=== PATIENT | female | born 2000 | race Caucasian/White ===

== ENCOUNTER 2025-09-30 22:37 | Outpatient (CLI) | payer OTHER, SELFPAY ==
[2025-09-30 22:53] VITALS: TEMP 36.7
[2025-09-30 23:00] VITALS: BP 120/77; PULSE 89
[2025-09-30 23:16] VITALS: BP 123/80; PULSE 93
[2025-09-30 23:22] LABS: Hematocrit* 35.6 % (33.0-51.0); Hemoglobin* 12.1 gm/dL (12.0-16.0); Mean Corpuscular HGB Conc 34 gm/dL (32-36); Mean Corpuscular Hemoglobin 31 pg (26-34); Mean Corpuscular Volume 91 fL (80-100); Red Blood Count* 3.90 m/uL (4.00-5.20); White Blood Count* 12.16 K/uL (4.50-11.00)
[2025-09-30 23:30] VITALS: BP 118/76; PULSE 91
[2025-09-30 23:32] LABS: Slide Review Reflex No
[2025-09-30 23:37] LABS: Alanine Aminotransferase* 16 U/L (4-35); Aspartate Amino Transferase* 25 U/L (12-35); Blood Urea Nitrogen* 11 mg/dL (5-24); Creatinine* 0.5 mg/dL (0.5-1.5); Estimated Glomerular Filt Rate 133 ml/min
[2025-09-30 23:45] VITALS: BP 117/66; PULSE 90
[2025-09-30 23:49] LABS: Protein Creatinine Ratio Urine 0.42 (0-0.19)
[2025-10-01] VITALS: BP 114/70; PULSE 90
--- NOTE | 2025-10-01 00:26 | PC.OBNST ---
NST Note NST Note Start: 09/30/25 22:41 Freq: ONCE Status: Active Protocol: Document 10/01/25 00:24 MRN (Rec: 10/01/25 00:25 MRN [id number]) NST Note 1 Para (# of births) 0 EDC 11/18/25 Gestational Age In 33 Weeks & 1 Days Weeks & Days Patient Presented Other with Complaint(s) of Other Complaints Rule out Pre E Reactive Yes Appropriate for Yes Gestational Age FERN Lauren Rn Date 10/01/25 Reactive Yes Appropriate for Yes Gestational Age FERN Castillo RN Date 10/01/25 OB NST charge Yes Complete NST Note Yes via Write Note The provider's electronic signature indicates the NST is reactive/appropriate for gestational age. *Note to provider: If an addendum is required, open the patient's chart and click on the note under the Nurse/Allied Health tab.
[2025-10-02 16:30] LABS: Urine Creatinine mg/24 Hour 0 mg/Day
[2025-10-02 16:48] LABS: Protein Creatinine Ratio Urine 0.36 (0-0.19)
[2025-10-02 16:54] LABS: Total Volume 24 Hour Urine 2200 ml
== END 2025-10-01 00:26 | disposition home or self-care (01) ==
LOC: OB OUT 22:38 → OB 22:39
PROVIDERS: Visit Provider Family Medicine
DX: O26.893 Other specified pregnancy related conditions, third trimester (principal); R03.0 Elevated blood-pressure reading, without diagnosis of hypertension; Z3A.33 33 weeks gestation of pregnancy
CPT/HCPCS: 36415; 59025; 81003; 82565; 82570; 84156; 84450; 84460; 84520; 85027; G0463

== ENCOUNTER 2025-10-11 17:13 | Outpatient (CLI) | payer OTHER, SELFPAY ==
[2025-10-11] VITALS (7 sets, daily range): BP systolic 124–138; BP diastolic 67–87; PULSE 87–105; RESP 16–18; TEMP 36.7–36.8; O2SAT 90–99
[2025-10-11 17:50] LABS: Appearance Urine Clear (Clear)
--- NOTE | 2025-10-11 18:13 | CRLHL7_ITS ---
For Patients: As a result of the Century Cures Act, medical imaging exams and procedure reports are released immediately into your electronic medical record. You may view this report before your referring provider. If you have questions, please contact your health care provider. INDICATION: Flank and hip pain TECHNIQUE: Ultrasound renal and bladder complete. Cook-scale and color Doppler sonographic images were acquired of the kidneys and urinary bladder. COMPARISON: None. FINDINGS: Right kidney: Size: 13.5 x 5.7 x 6.6 cm. Morphology: Normal echotexture and cortex. Masses: No suspicious mass. Stones: No. Hydronephrosis: Mild. Left kidney: Size: 12.2 x 5.2 x 5 cm. Morphology: Normal echotexture and cortex. Masses: No suspicious mass. Stones: Query a nonobstructive nephrolith measuring 0.6 x 0.2 x 0.5 cm. Hydronephrosis: No. Bladder: Morphology: Normal in caliber and appearance. Ureteral jets: Left ureteral jet was visualized. Right ureteral jet was not seen. Prevoid volume was 362 mL. Postvoid residual volume could not be obtained due to head down. IMPRESSION: Limited exam as patient is 34 weeks . 1. Mild right-sided hydronephrosis which persists postvoid. Right ureteral jet was not definitively visualized. Correlate for tenderness. 2. No left-sided hydronephrosis. Query a nonobstructive left-sided nephrolith measuring 0.6 x 0.2 x 0.5 cm. Dictated by Bryan Russell MD @ 10/11/2025 7:55:43 PM (Electronically Signed)
[2025-10-11] MEDS: LACTATED RINGERS 1000 ML 1,000 ML IV (18:30)
[2025-10-11 18:39] LABS: Hematocrit* 35.8 % (33.0-51.0); Hemoglobin* 12.5 gm/dL (12.0-16.0); Immature Granulocytes Pct Auto 2.6 %; Mean Corpuscular HGB Conc 35 gm/dL (32-36); Mean Corpuscular Hemoglobin 31 pg (26-34); Mean Corpuscular Volume 88 fL (80-100); RDW Coefficient of Variation % 13.4 % (11.5-15.5); Red Blood Count* 4.07 m/uL (4.00-5.20); White Blood Count* 13.73 K/uL (4.50-11.00)
[2025-10-11] MEDS: ONDANSETRON 2 MG/ML inj 4 MG IVP (18:39)
[2025-10-11 18:50] LABS: Immature Granulocytes Abs Auto 0.40 K/uL (0.00-0.30); Lymphocytes Absolute Auto 1.30 K/uL (0.90-2.90); Slide Review Reflex No
--- NOTE | 2025-10-11 19:05 | P.OBLDTN_ITS ---
OB - Triage/Final Diagnosis Visit Information Time Seen by Provider: 19:05 Date Seen: 10/11/25 Narrative: The patient is a 25 year old 1 para 0 at 34 weeks gestation, who presents with right flank pain. She endorses right flank pain starting this morning. Recalls a similar episode 5 days ago, associated with pink-tinged urine, for which she called the clinic. She was instructed to present to L&D for further evaluation, but pain resolved spontaneously. Recurred this morning, and has worsened throughout the day. She describes severe pain in her right flank radiating toward the right groin. Endorses mild nausea, no vomiting. Of note, she has a history of nephrolithiasis. Last episode of renal colic was in 2011. Per chart review, a CT of the abdomen and pelvis showed nonobstructive nephrolithiasis bilaterally in 2021. Her stools have been hard, constipated throughout her . No diarrhea. Denies dysuria or further episodes of hematuria. No fever, chills or body aches. She has had Dion Govea, but otherwise no contractions. Normal movement. Evaluation Laboratory results: Laboratory Tests 10/11/25 10/11/25 Range/Units 18:23 17:34 WBC 13.73 H (4.50-11.00) K/uL RBC 4.07 (4.00-5.20) m/uL Hgb 12.5 (12.0-16.0) gm/dL Hct 35.8 (33.0-51.0) % MCV 88 (80-100) fL MCH 31 (26-34) pg MCHC 35 (32-36) gm/dL RDW Coeff of Maryan 13.4 (11.5-15.5) % Plt Count 171 (140-440) K/uL Neut % (Auto) 79.3 H (42.0-72.0) % Lymph % (Auto) 9.2 L (20-44) % Saunders % (Auto) 7.6 (0.0-11.0) % Eos % (Auto) 1.2 (0.0-7.0) % Baso % (Auto) 0.1 (0.0-3.0) % Neut # (Auto) 10.90 H (1.7-7.0) K/uL Lymph # (Auto) 1.30 (0.90-2.90) K/uL Saunders # (Auto) 1.00 H (0.00-0.90) K/UL Eos # (Auto) 0.20 (0.00-0.50) K/uL Baso # (Auto) 0.00 (0.00-0.30) K/uL Abs Immat Gran (auto) 0.40 H (0.00-0.30) K/uL Imm/Tot Granulo (auto) 2.6 % Sodium Pending Potassium Pending Chloride Pending Carbon Dioxide Pending Anion Gap Pending BUN Pending Creatinine Pending Estimated GFR Pending Glucose Pending Calcium Pending Total Bilirubin Pending AST Pending ALT Pending Alkaline Phosphatase Pending Total Protein Pending Albumin Pending Urine Color Yellow (Yellow) Urine Appearance Clear (Clear) Urine pH 6.5 (5.0-8.5) Ur Specific [place] 1.020 (1.000-1.030) Urine Protein Negative (Negative) Urine Glucose (UA) Negative (Negative) Urine Ketones Negative (Negative) Urine Blood Trace-lysed A (Negative) Urine Nitrite Negative (Negative) Urine Bilirubin Negative (Negative) Urine Urobilinogen 0.2 (0.2-1.0) Ur Leukocyte Esterase Negative (Negative) Urine RBC 2-5 A (0-2) Urine WBC 0-2 (0-5) Ur Squamous Epith Cells Moderate A (None-Few) Amorphous Sediment Few A (None) Urine Bacteria Moderate A (None) Urine Mucus Few A (None) Vital signs: Vital Signs - 24 hr 10/11/25 17:35 10/11/25 18:43 Pulse Rate 104 H 97 Blood Pressure 138/87 124/76 Pulse Oximetry 95 Comments: General appearance: Well-appearing adult female. Alert, oriented and appropriate. Sitting up in hospital bed. Appears uncomfortable, frequently shifting positions. HEENT: EOMI, no conjunctival injection or discharge. MMM. Neck: Supple. CV: RRR, no rubs, murmurs or extra heart sounds. Pulm: CTAB, no wheezes, rales or rhonchi. Abdomen: Soft, gravid. No tenderness to palpation. Back: Mild R CVA tenderness MSK: Moving all extremities. Ext: Warm and well-perfused. Trace edema bilaterally. Skin: No rashes appreciated over exposed skin. Neuro: Grossly normal strength and sensation. No focal deficits. Psych: Normal affect. Fetus (Single) Heart Rate Baseline: 135 Environmental Solutions Engineer Variability: Moderate (6-25) Monitor Accelerations: Present Monitor Decelerations: None Final Diagnosis (1) Right flank pain: Status: Acute Problem details: Strongly suspect nephrolithiasis and renal colic. Right flank pain radiating toward the right groin, microscopic hematuria (recent episode of gross hematuria), history of nephrolithiasis. Afebrile and vital signs are otherwise within normal limits. Urine microscopy shows 2-5 red blood cells. CBC with mild leukocytosis, CMP is pending. - IV fluid bolus running, given IV Zofran and oral oxycodone 5 mg for pain. She had previously taken acetaminophen at home. - Renal ultrasound, tech is currently in route - If no evidence of obstruction on imaging or indication for further acute intervention, anticipate discharge home with IV Zofran and oxycodone. Strain urine and collect stones that are produced for stone analysis. Recommend maintaining adequate hydration throughout the rest of her . - NST reactive. status reassuring. - Her next OB appointment is scheduled for 10/14 (2) History of nephrolithiasis: Status: Acute
[2025-10-11 19:15] LABS: Albumin* 3.5 g/dL (3.3-5.0); Chloride* 107 mmol/L (96-114); Potassium* 3.7 mmol/L (3.6-5.1); Sodium* 133 mmol/L (135-149)
[2025-10-11 19:17] LABS: Blood Urea Nitrogen* 8 mg/dL (5-24); Creatinine* 0.6 mg/dL (0.5-1.5); Estimated Glomerular Filt Rate 127 ml/min
[2025-10-11 19:18] LABS: Alanine Aminotransferase* 20 U/L (4-35); Alkaline Phosphatase* 118 U/L (40-150); Anion Gap 7 mEq/L (7-15); Aspartate Amino Transferase* 24 U/L (12-35); Bilirubin Total* 0.4 mg/dL (0.1-1.5); Calcium* 9.7 mg/dL (8.4-10.6); Carbon Dioxide* 19 mmol/L (20-32); Glucose* 108 mg/dL (60-115); Total Protein* 6.4 g/dL (6.0-8.3)
[2025-10-11] MEDS: ACETAMINOPHEN 500 MG TABLET 1000 MG PO (20:00)
--- NOTE | 2025-10-11 23:57 | PC.OBNST ---
NST Note NST Note Start: 10/11/25 17:30 Freq: ONCE Status: Active Protocol: Document 10/11/25 23:56 KAH (Rec: 10/11/25 23:57 KAH [id number]) NST Note 1 Para (# of births) 0 EDC 11/18/25 Gestational Age In 34 Weeks & 4 Days Weeks & Days Patient Presented Pain,Nausea and vomiting,Headache with Complaint(s) of If Pain, describe Back pain/flank pain wrapping around right side into location right hip Reactive Yes Appropriate for Yes Gestational Age FERN Riley, RN Date 10/11/25 Reactive Yes Appropriate for Yes Gestational Age FERN uFnes RN Date 10/11/25 OB NST charge Yes Complete NST Note Yes via Write Note The provider's electronic signature indicates the NST is reactive/appropriate for gestational age. *Note to provider: If an addendum is required, open the patient's chart and click on the note under the Nurse/Allied Health tab.
== END 2025-10-11 23:42 | disposition home or self-care (01) ==
LOC: OB OUT 17:13 → OB 17:29
PROVIDERS: PCP Student in an Organized Health Care Education/Training Program; Visit Provider Family Medicine
DX: O26.893 Other specified pregnancy related conditions, third trimester (principal); R10.A1 Flank pain, right side; R12 Heartburn; Z3A.34 34 weeks gestation of pregnancy
CPT/HCPCS: 36415; 59025; 76770; 80053; 81001; 81003; 85025; 87086; G0463; A9270; J2405; J7120